=== PATIENT | female | born 1980 | race Caucasian/White ===

== ENCOUNTER 2024-07-31 19:26 | Emergency (ER) | payer BC, SELFPAY ==
[2024-07-31 19:30] VITALS: BP 146/86
[2024-07-31 20:02] VITALS: BMI 45.2
--- NOTE | 2024-07-31 20:02 | ED.GENMED ---
History of Present Illness
General
Chief Complaint: Suicidal Ideation
Source: patient
Exam Limitations: none
Time Seen by Provider: 07/31/24 19:39
History of Present Illness
History of Present Illness:
44-year-old female presents emergency department due to suicidal ideation. It began after she started taking Lunesta. She has taken 2 doses. She has SI with a plan to take all the medication in the bottle. She was prescribed 15 pills, and has
taken 2.
Past History
Past History
ED Past Medical History: Other (Ovarian cyst ), Other (severe anxiety and PTSD 'related to hospitals' so 'I want to get out of here as soon as I can.') and Other (Has chronic neck pain, was told she has arthritis in her neck.)
ED Past Surgical History: and Other (Tubal ligation )
Social History
Tobacco: Non-smoker
Alcohol: None
Drug: None
Personal: Other (legally )
Living: with family (grandmother)
Employment: Employed ([employer])
Family History
Family History: Hypertension and Unable to obtain (Patient states she does not know her family history )
Review of Systems
Review of Systems
Allergies reviewed?: Yes
All Other Systems: Not applicable
Constitutional: Reports no symptoms
EENT: Reports no symptoms
Respiratory: Reports no symptoms
Cardiac: Reports no symptoms
ABD/GI: Reports no symptoms
: Reports no symptoms
Musculoskeletal: Reports no symptoms
Skin: Reports no symptoms
Neurological: Reports no symptoms
Endocrine: Reports no symptoms
Hematologic/Lymphatic: Reports no symptoms
Psychiatric: Reports suicidal
Phy Exam
Physical Exam
Physical Exam:
Physical Exam
General: no apparent distress, not acutely ill
Neck: supple. no meningeal signs. normal posterior pharynx
Heart: s1/s2 regular rate and rhythm, no murmur. equal radial
pulses.
HEENT: Pupils equal round reactive to light, EOMI
Lungs: no acute respiratory distress. clear bilaterally
Abdomen: normal bowel sounds. not tender. no CVAT
Neuro: alert and oriented. no focal neurological deficits cranial nerves II through XII intact
Skin: no rash
Psychiatric: well kept. interactive and cooperative, flat affect
Extremities: no edema. no calf tenderness. negative homans. good distal pulses
Course
Orders/Labs/Results
Orders:
Orders
07/31/24 19:41
1:1 Observation - Suicide/ Violent Behavior As Directed
Test Result ONCE
07/31/24 20:04
Electrocardiogram (*1) Stat
Reason for Study: Other
Other Reason for Exam: lunesta ingestion
Electrocardiogram (*1) Urgent
EKG- Treatment ONCE
07/31/24 20:24
Acetaminophen Urgent
Alcohol Urgent
Complete Blood Count/With Diff Urgent
Comprehensive Metabolic Panel Urgent
Salicylate Urgent
07/31/24 20:58
Crisis Consult Urgent
Reason for Consult: suicidal ideation
07/31/24 21:20
HCG, Urine Qualitative Screen Urgent
Date Specimen was Collected: 07/31/24
Time Specimen was Collected: 20:40
Urine Drug Abuse Screen Urgent
Date Specimen was Collected: 07/31/24
Time Specimen was Collected: 20:40
Abnormal Lab Results
07/31/24 07/31/24
20:24 21:20
WBC 12.1 H 10^3/uL
(4.8-10.8)
Hct 36.9 L %
(37.0-47.0)
MPV 10.9 H fL
(7.4-10.4)
Absolute Neuts (auto) 8.3 H 10^3/uL
(1.4-6.5)
Glucose 129 H mg/dl
(70-99)
Salicylates < 1.0 L mg/dl
(2.0-20.0)
Acetaminophen < 10 L ug/ml
(10-30)
U Marijuana (THC) Screen Positive H
(Negative)
07/31/24 20:24
07/31/24 20:24
Vital Signs
Initial and Last Documented VS:
Initial Vital Signs
Temp Pulse Resp BP Pulse Ox
98.3 F 109 20 146/86 95
07/31/24 19:30 07/31/24 19:30 07/31/24 19:30 07/31/24 19:30 07/31/24 19:30
Last Documented Vital Signs
Temp Pulse Resp BP Pulse Ox
98.3 F 109 18 146/86 95
07/31/24 19:30 07/31/24 19:30 07/31/24 22:00 07/31/24 19:30 07/31/24 19:30
MDM/Problems Addressed
Differential Diagnosis Includes:
Suicidal ideation, overdose
MDM/Problems Addressed:
44-year-old female with depression and suicidal ideation. Crisis attempting to find placement for patient.
Chronic conditions affecting care: Asthma
*Pulse Oximetry
Patient hypoxic: no
*EKG
Interpreted by ED Provider?: Yes
EKG Intrepretation Date: 07/31/24
EKG Intrepretation Time: 20:07
Interpretation: abnormal
Comparison EKG: no comparison EKG present
Heart Rate: 100
Rate: normal
Rhythm: sinus
[place]: normal axis
Interval: normal interval
QRS Pattern: normal QRS
Ischemia: non-specific ST changes
*Critical Care Note
Total Time (30-74mins, 75-104mins- exclusive of procedures): Not Applicable
Patient Management
Social determinants of health affecting care: Living situation
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
Escalation/DeEscalation of care consider admission/obs:
psychiatric hospitalization indicated
ED Attending Note
-
Portions of this chart may have been created with voice recognition software.� Occasional wrong word or��sound alike� substitutions may have occurred due to the inherent limitations of voice recognition software.
Discharge Plan
Departure
Patient Disposition: Psych Facility
Date of Disposition: 07/31/24
Time of Disposition: 22:30
Patient Status:: Psych
Condition: Good
Discharge Problem:
Depression with suicidal ideation
Prescriptions:
No Action
albuterol sulfate 18 GM HFA aerosol inhaler
8.5 gm .Route PRN PRN (Reason: sob)
clindamycin HCl 300 mg Capsule
300 mg PO BID
buspirone [BuSpar] 10 mg Tablet
20 mg PO HS
prazosin 2 mg Capsule
4 mg PO HS
Vraylar 3 mg Capsule
3 mg PO DAILY
Referrals:
Paresh Davis MD [Family Provider] -
Interventions
Interventions:
*Risk Screen - Suicide Last Done: 07/31/24 19:30
*General Assessment Last Done: 07/31/24 19:30
*Neglect/Abuse Screening Last Done: 07/31/24 19:30
ED- Fall Risk Assessment Last Done: 07/31/24 22:06
ED-Psychological Assessment Last Done: 07/31/24 22:06
Discharge Date and Time
Print Language: YAKUT
[2024-07-31 20:34] LABS: % Basophils 0.6 % (0-2); % Eosinophils 1.7 % (0-6); % Immature Granulocytes 0.3 % (0-0.5); % Lymphocytes 24.3 % (20.5-51.1); % Monocytes 4.3 % (1.7-9.3); % Neutrophils 68.8 % (42.2-75.2); Absolute Basophils 0.1 10^3/uL (0-0.2); Absolute Eosinophils 0.2 10^3/uL (0-0.7); Absolute Lymphocytes 2.9 10^3/uL (1.2-3.4); Absolute Monocytes 0.5 10^3/uL (0.1-0.6); Absolute Neutrophils 8.3 10^3/uL (1.4-6.5); Hematocrit 36.9 % (37.0-47.0); Hemoglobin 12.7 g/dL (12.0-16.0); Mean Corp Hgb Conc. 34.4 g/dL (33.0-37.0); Mean Corpuscular Hgb 28.5 pg (27.0-31.0); Mean Corpuscular Volume 82.7 fL (81.0-99.0); Mean Platelet Volume 10.9 fL (7.4-10.4); Nucleated Red Blood Cells % 0 %; Platelet Count 277 10^3/uL (130-400); Red Blood Cell Count 4.46 10^6/uL (4.20-5.40); White Blood Cell Count 12.1 10^3/uL (4.8-10.8)
[2024-07-31 20:49] LABS: ALT (SGPT) 17 U/L (0-35); AST (SGOT) 19 U/L (14-36); Acetaminophen < 10 ug/ml (10-30); Albumin 4.5 g/dl (3.5-5.0); Alkaline Phosphatase 63 U/L (38-126); Blood Urea Nitrogen 8 mg/dl (7-17); Calcium 9.7 mg/dl (8.4-10.2); Carbon Dioxide 23 mmol/L (22-30); Chloride 102 mmol/L (98-107); Estimated Creatinine Clearance 113 ml/min; Glucose 129 mg/dl (70-99); Potassium 3.7 mmol/L (3.5-5.1); Salicylate < 1.0 mg/dl (2.0-20.0); Sodium 137 mmol/L (135-145); Total Bilirubin 0.5 mg/dl (0.2-1.3); eGFR > 60.00
[2024-07-31 20:51] LABS: Alcohol None Detected
[2024-07-31 21:28] LABS: HCG, Urine Qualitative Screen Negative
[2024-07-31 21:38] LABS: Amphetamines Negative (Negative); Barbiturates Negative (Negative); Benzodiazepines Negative (Negative); Buprenorphine Negative (Negative); Cocaine Negative (Negative); Marijuana Positive (Negative); Methadone Negative (Negative); Methamphetamines Negative (Negative); Opiates Negative (Negative); Phencyclidine Negative (Negative); Tricyclic Antidepressants Negative (Negative)
[2024-08-01] MEDS: PROTONIX 40 MG PO (01:51)
[2024-08-01] MEDS: CARAFATE SUSPENSION 1 GM PO (02:38)
[2024-08-01] MEDS: ZOFRAN ODT (ORALLY DISINTEGRATING) 4 MG PO (02:38)
--- NOTE | 2024-08-01 03:58 | ED.ADDNOTE ---
ED Addendum
ED Addendum
ED Addendum Note:
Patient has been evaluated by telepsychiatrist who does not feel patient requires inpatient psychiatric care, does not feel patient is a risk to herself and patient continues to deny suicidal thoughts or plan.
We have spoken with the . Patient's medications as well as firearms are all locked and secured.
feels comfortable taking his home and the plan is for outpatient follow-up with her psychiatrist as well as her therapist.
Long discussion with patient that if she again begins to feel suicidal, thoughts of harming herself that she should promptly reach out to her and prompt return to the ER for further evaluation.
She is agreeable with this plan.
During ED evaluation she complained of some heartburn which has promptly resolved with Protonix and Carafate.
== END 2024-08-01 04:09 | disposition home or self-care (01) ==
LOC: EMR 19:26
PROVIDERS: Emergency Medicine; EMERGENCY PHYSICIAN Emergency Medicine; FAMILY PHYSICIAN Internal Medicine
DX: R45.851 Suicidal ideations (principal); F32.A Depression, unspecified; F17.290 Nicotine dependence, other tobacco product, uncomplicated; J45.909 Unspecified asthma, uncomplicated
CPT/HCPCS: 99285; 80053; 80143; 80179; 80306; 81025; 82077; 85025; 93005

== ENCOUNTER 2025-06-21 13:46 | Emergency (ER) | payer BC, SELFPAY ==
[2025-06-21 13:55] VITALS: BP 148/96
[2025-06-21 14:26] LABS: Hematocrit 39.5 % (37.0-47.0); Hemoglobin 13.3 g/dL (12.0-16.0); Mean Corp Hgb Conc. 33.7 g/dL (33.0-37.0); Mean Corpuscular Volume 86.6 fL (81.0-99.0); Nucleated Red Blood Cells % 0 %; Platelet Count 250 10^3/uL (130-400); Red Cell Dist. Width 13.3 % (11.5-14.5)
[2025-06-21 14:48] LABS: HCG, Serum Qualitative Screen Negative
[2025-06-21 14:51] LABS: ALT (SGPT) 13 U/L (0-35); AST (SGOT) 16 U/L (14-36); Albumin 4.7 g/dl (3.5-5.0); Alkaline Phosphatase 44 U/L (38-126); Blood Urea Nitrogen 7 mg/dl (7-17); Calcium 9.5 mg/dl (8.4-10.2); Carbon Dioxide 21 mmol/L (22-30); Chloride 107 mmol/L (98-107); Glucose 118 mg/dl (70-99); Potassium 4.5 mmol/L (3.5-5.1); Sodium 137 mmol/L (135-145); Total Protein 7.5 g/dl (6.3-8.2); eGFR > 60.00
[2025-06-21 14:58] LABS: Troponin I < 0.012 ng/ml
[2025-06-21 20:52] VITALS: BMI 40.4
[2025-06-21 21:37] LABS: D-Dimer < 0.27 ug/mlFEU (0.00-0.50)
[2025-06-21] MEDS: TORADOL 15 MG IV (21:41)
[2025-06-21 21:47] LABS: Troponin I < 0.012 ng/ml
--- NOTE | 2025-06-21 22:57 | ED.GENMED ---
History of Present Illness
General
Chief Complaint: Chest Pain
Source: patient
Exam Limitations: none
Time Seen by Provider: 06/21/25 20:52
History of Present Illness
History of Present Illness:
Note:
CHIEF COMPLAINT(S)
Left-sided chest pain and dizziness.
HISTORY OF PRESENT ILLNESS
The patient is a 45-year-old female presenting with left-sided chest pain described as a consistent, squeezing sensation that worsens with breathing. She also reports dizziness. The chest pain has been persistent for approximately seven hours. She
states that her EKG has been abnormal since 2000, with no changes over the years, indicating a chronic nature. She has no history of fever, cough, hemoptysis, leg swelling, or any cardiac problems, including myocardial infarction or arrhythmias. The
pain does not intensify with specific positions. The patient was resting on the couch this morning but decided to come in when the pain did not subside.
The patient underwent an EKG, which remained unchanged from previous baseline abnormalities. A heart enzyme test was normal, indicating no acute cardiac damage. A repeat test will be conducted along with a D-dimer assessment to rule out pulmonary
embolism. A chest X-ray is also planned to ensure that the lungs are clear and to evaluate heart size.
PHYSICAL EXAM
General: Alert, no acute distress.
Cardiovascular: Heart regular without murmur.
Respiratory: Lungs are clear on auscultation; non-labored respirations.
Musculoskeletal: No tenderness upon palpation of the chest. No swelling or palpable cords in the legs. Negative Homans sign.
Other systems: Normal examination findings noted.
PROBLEM LIST
Acute: Left-sided chest pain, dizziness.
PLAN
1. Perform repeat heart enzyme test to ensure no cardiac damage.
2. Conduct a D-dimer test to rule out pulmonary embolism.
3. Obtain a chest X-ray to evaluate lung clarity and heart size.
4. Administer an anti-inflammatory medication (ketorolac) during the waiting period to alleviate pain.
5. Consider referral to a specialist for further evaluation if initial diagnostics are inconclusive.
DIFFERENTIAL DIAGNOSIS
The Differential Diagnosis includes, in no particular order and is not limited to:
1. Myocardial ischemia
2. Pulmonary embolism
3. Musculoskeletal chest pain
4. Gastroesophageal reflux disease (GERD)
5. Costochondritis
6. Anxiety or panic disorder
7. Aortic dissection
8. Pericarditis
9. Pneumothorax
10. Angina pectoris
EKG
My independent EKG interpretation is:
- Time of EKG: Not specified
- Rhythm: Normal sinus rhythm
- Heart rate: 72 bpm
- [place]: Normal
- ND Interval: Not specified
- QRS Duration: Not specified
- QT Interval: Not specified
- Abnormalities: T-wave inversion noted in anterior leads
- Comparison: No acute changes compared to July 2024 EKG
- Historical Comparison: T-wave inversion consistent with previous EKGs since 2009
Disposition:
SUMMARY OF ENCOUNTER
The patient, a 45-year-old female, presented to the emergency department with left-sided chest pain persisting for two days. The pain is described as constant, and some components are reproducible, worsening in certain positions. Initial diagnostic
evaluation, including physical examination and laboratory tests, was conducted to assess potential acute cardiac and pulmonary conditions.
DISPOSITION
Discharge.
ASSESSMENT
Left-sided chest pain, non-cardiac in nature, likely musculoskeletal.
PLAN
The patient will be discharged with instructions to follow-up outpatient for further assessment and management if symptoms persist or worsen.
INDEPENDENT REVIEW OF LABS AND INTERPRETATION OF TESTS
- My independent review of CBC is normal.
- My independent review of D-dimer is negative.
- My independent review of CMP is normal.
- My independent review of troponin times 2 is negative.
- My independent review of chest x-ray is unremarkable.
- My independent EKG interpretation is unchanged from prior, consistent with historical baselines.
MEDICAL DECISION MAKING
-Complexity of Data Reviewed: Chronic conditions affecting care. Differential Diagnosis considered: myocardial ischemia, pulmonary embolism, musculoskeletal chest pain, gastroesophageal reflux disease (GERD), costochondritis, anxiety or panic
disorder, aortic dissection, pericarditis, pneumothorax, angina pectoris.
-Data:
Category 1
My independent interpretation of EKG is consistent with prior, unchanged. Radiology studies and lab results were reviewed to rule out acute conditions.
-Risk:
Consideration of Admission/Observation: Escalation of care including admission/observation was considered, given the complexity and risk of the patients presenting complaint. However, ultimately the patient is safe for outpatient management with
close follow-up. Reasoning: Work-up is reassuring, does not reveal any acute life/organ threatening processes, patients symptoms are well controlled upon reevaluation, reexamination is reassuring, vitals are stable, patient is agreeable with
discharge, and reliable for follow-up.
DIAGNOSIS
Musculoskeletal chest pain (ICD-10: M79.2)
Past History
Past History
ED Past Medical History: Other (Ovarian cyst ), Other (severe anxiety and PTSD 'related to hospitals' so 'I want to get out of here as soon as I can.') and Other (Has chronic neck pain, was told she has arthritis in her neck.)
ED Past Surgical History: and Other (Tubal ligation )
Social History
Tobacco: Non-smoker
Alcohol: None
Drug: None
Personal: Other (legally )
Living: with family (grandmother)
Employment: Employed ([employer])
Family History
Family History: Hypertension and Unable to obtain (Patient states she does not know her family history )
Phy Exam
Physical Exam
Physical Exam:
.
Scores
Heart Score for Chest Pain Patients
STEMI patient?: No
History: Slightly or Non-Suspicious
ECG: Normal
Age: </= 45 years
Risk Factors: No Risk Factors
Troponin: </= Normal Limit
Heart Score for Chest Pain Patients: 0
Heart Score Risk: 2.5% MACE over next 6 weeks
Course
Orders/Labs/Results
Orders:
Orders
06/21/25
Electrocardiogram (*1) Stat
Comment: DONE
06/21/25 14:01
Test Result ONCE
06/21/25 14:06
Complete Blood Count/With Diff Urgent
Comprehensive Metabolic Panel Urgent
HCG, Serum Qualitative Screen Urgent
Troponin I Urgent
06/21/25 19:12
ECG [Electrocardiogram (*1)] Urgent
Reason for Study: Chest Pain
EKG- Treatment ONCE
06/21/25 21:15
DDimer [D-Dimer] Urgent
Troponin I Urgent
06/21/25 21:36
CR Chest - 2 Views Urgent
Comment:
Reason For Exam: cp
06/21/25 21:37
Ketorolac [Toradol] 15 mg IV NOW STA
Abnormal Lab Results
06/21/25
14:06
MPV 10.8 H fL
(7.4-10.4)
Absolute Neuts (auto) 7.0 H 10^3/uL
(1.4-6.5)
Carbon Dioxide 21 L mmol/L
(22-30)
Glucose 118 H mg/dl
(70-99)
06/21/25 14:06
06/21/25 14:06
Vital Signs
Initial and Last Documented VS:
Initial Vital Signs
Temp Pulse Resp BP Pulse Ox
99.4 F 83 18 148/96 95
06/21/25 13:55 06/21/25 13:55 06/21/25 13:55 06/21/25 13:55 06/21/25 13:55
Last Documented Vital Signs
Temp Pulse Resp BP Pulse Ox
99.4 F 87 18 138/83 99
06/21/25 13:55 06/21/25 23:15 06/21/25 23:15 06/21/25 23:15 06/21/25 23:15
*Pulse Oximetry
SaO2: 98
Oxygen Mode of Delivery: Room air
Patient hypoxic: no
*Critical Care Note
Total Time (30-74mins, 75-104mins- exclusive of procedures): Not Applicable
ED Attending Note
-
Portions of this chart may have been created with voice recognition software.� Occasional wrong word or��sound alike� substitutions may have occurred due to the inherent limitations of voice recognition software.
Discharge Plan
Departure
Patient Disposition: Home (Routine Discharge)
Date of Disposition: 06/21/25
Time of Disposition: 22:57
Patient with high blood pressure during this ER visit?: Yes
Discharge Problem:
Atypical chest pain
Instructions: Chest Pain PCP Follow Up, BLOOD PRESSURE
Prescriptions:
No Action
albuterol sulfate 18 GM HFA aerosol inhaler
8.5 gm .Route PRN PRN (Reason: sob)
clindamycin HCl 300 mg Capsule
300 mg PO BID
buspirone [BuSpar] 10 mg Tablet
20 mg PO HS
prazosin 2 mg Capsule
4 mg PO HS
Vraylar 3 mg Capsule
3 mg PO DAILY
Referrals:
Paresh Davis MD [Family Provider, Internal Medicine]
Stand Alone Forms: Return to Work
Activity Restrictions/Additional Instructions:
Please see your doctor in follow-up in the next 3 to 5 days. Return immediately for worsening pain, fevers, shortness of breath, coughing up blood, leg swelling or any other concerns. You may use Tylenol and ibuprofen as needed for pain control
Interventions
Interventions:
*Risk Screen - Suicide Last Done: 06/21/25 13:55
*General Assessment Last Done: 06/21/25 13:55
*Neglect/Abuse Screening Last Done: 06/21/25 13:55
*ED- Fall Risk Assessment Last Done: 06/21/25 20:52
*ED COVID-19 Vaccine History Last Done: 06/21/25 20:52
*Nursing Disposition Last Done: 06/21/25 23:22
ED- Cardiac Assessment Last Done: 06/21/25 20:52
Discharge Date and Time
Discharge Date/Time: 06/21/25 23:23
Print Language: BULGARIAN
[2025-06-21 23:15] VITALS: BP 138/83
== END 2025-06-21 23:23 | disposition home or self-care (01) ==
LOC: EMR 13:46
PROVIDERS: Emergency Medicine; EMERGENCY PHYSICIAN Emergency Medicine; FAMILY PHYSICIAN Internal Medicine
DX: R07.89 Other chest pain (principal); R42 Dizziness and giddiness; F41.9 Anxiety disorder, unspecified; F43.10 Post-traumatic stress disorder, unspecified; Z98.51 Tubal ligation status
CPT/HCPCS: 99283; 96374; 71046; 80053; 84484; 84703; 85025; 85379; 93005